=== PATIENT | female | born 1995 | race Caucasian/White ===

== ENCOUNTER → 2021-03-30 15:45 | Outpatient (CLI) | payer OTHER, SELFPAY ==
[2021-04-09 12:04] LABS: Estradiol 79.9 pg/mL (.); Estriol,Serum 0.2 ng/mL (.); Estrone,Serum 101 pg/mL (.)
== END ==
PROVIDERS: PCP Registered Nurse; Referring Provider Obstetrics & Gynecology; Visit Provider Obstetrics & Gynecology
DX: E28.0 Estrogen excess (principal)
CPT/HCPCS: 36415; 82670; 82672; 82677; 82679